=== PATIENT | male | born 1940 | race Caucasian/White ===

== ENCOUNTER 2018-01-26 09:40 | Observation (INO) | payer MEDICARE, BC ==
[2018-01-26] MEDS ORDERED: Sodium Chloride 0.9% 10 ML Syringe FLUSH PRN (09:51)
[2018-01-26 10:40] LABS: CHLORIDE,CL 106 mmol/L (98-107); SODIUM,NA 140 mmol/L (136-145)
[2018-01-26] MEDS ORDERED: Lactated Ringers 1,000 ML IV SCH ×2 (11:45→14:00)
[2018-01-26] MEDS ORDERED: Sodium Chloride 0.9% 1,000 ML IV SCH (14:15)
[2018-01-26] MEDS ORDERED: Lisinopril 10 MG Tab PO STA (14:51)
--- NOTE | 2018-01-26 15:16 | EDM.PDOC ---
ED HPI GENERAL MEDICAL PROBLEM - General Chief Complaint: General Stated Complaint: DIZZINESS Time Seen by Provider: 01/26/18 09:50 Source of Information: Reports: Patient History Limitations: Reports: No Limitations - History of Present Illness INITIAL COMMENTS - FREE TEXT/NARRATIVE: Pt. presents to ER with complaints of acute lightheadedness and near syncope. Pt. states that the symptoms started while he was blowing his nose. He states that he had been walking at the [facility] prior to this. He states that he has been experiencing these symptoms for several months. He has had a recent echocardiogram and EKG which were not acutely abnormal. Pt. states that he did not experience any chest pain, shortness of breath, or headache prior to the event. He states that he didn't experience any diaphoresis during the event. He states that he has not recently been ill. Denies any recent medication changes. Onset: Today Location: Reports: Generalized Associated Symptoms: Reports: Weakness - Related Data Allergies Allergy/AdvReac Type Severity Reaction Status Date / Time No Known Allergies Allergy Verified 01/26/18 10:11 Home Meds: Home Meds Aspirin [Halfprin] 81 mg PO BRK 10/01/16 [History] Cholecalciferol (Vitamin D3) [Vitamin D3] 1,000 unit PO DAILY 10/01/16 [History] FA/Lycopene/Lut/MV,Ca,Iron,Min [Centrum] 1 tab PO DAILY 10/01/16 [History] Flaxseed Oil 1,000 mg PO DAILY 10/01/16 [History] Lisinopril [Prinivil] 2.5 mg PO DAILY 10/01/16 [History] Metoprolol Succinate [Toprol XL] 50 mg PO DAILY 10/01/16 [History] Simvastatin [Zocor] 40 mg PO BEDTIME 10/01/16 [History] Warfarin [Coumadin] 5 mg PO DAILY 10/01/16 [History] [place]-3/DHA/Epa/Fish Oil [Fish Oil 1,000 mg Softgel] 1,000 mg PO BID 01/26/18 [ History] Past Medical History HEENT History: Reports: Cataract, Other (See Below) Other HEENT History: presbyopia. astigmatism. hypermetropia Cardiovascular History: Reports: Afib, CAD, High Cholesterol, Hypertension, Other (See Below) Other Cardiovascular History: mitral valve stenosis and aortic valve stenosis. ascending aorta dilation Respiratory History: Reports: Other (See Below) Other Respiratory History: pleural effusion,bilat Gastrointestinal History: Reports: Colon Polyp, Diverticulosis Genitourinary History: Reports: Renal Disease, Other (See Below) Other Genitourinary History: spermatocele of epididymis. CKD stage 3 GFR 30- 59. peyronie disease Musculoskeletal History: Reports: Other (See Below) Other Musculoskeletal History: tendinopathy of right biceps tendon Neurological History: Reports: Other (See Below) Other Neuro History: near syncopy Endocrine/Metabolic History: Reports: Other (See Below) Other Endocrine/Metabolic History: thyroid cyst, hyperglycemia Oncologic (Cancer) History: Reports: Other (See Below) Other Oncologic History: malignant neoplasm of skin - Past Surgical History HEENT Surgical History: Reports: Cataract Surgery Cardiovascular Surgical History: Reports: Other (See Below) Other Cardiovascular Surgeries/Procedures: aortic valve replacement with metallic valve GI Surgical History: Reports: Colonoscopy Musculoskeletal Surgical History: Reports: Other (See Below) Other Musculoskeletal Surgeries/Procedures:: hand surgery, shoulder surgery Social & Family History - Family History Family Medical History: Noncontributory - Tobacco Use Smoking Status *Q: Never Smoker Used Tobacco, but Quit: Yes Month/Year Tobacco Last Used: unknown Second Hand Smoke Exposure: No - Caffeine Use Caffeine Use: Reports: None - Alcohol Use Days Per Week of Alcohol Use: 7 Number of Drinks Per Day: 2 Total Drinks Per Week: 14 - Recreational Drug Use Recreational Drug Use: No ED ROS GENERAL - Review of Systems Review Of Systems: See Below Constitutional: Reports: No Symptoms HEENT: Reports: No Symptoms Respiratory: Reports: No Symptoms Cardiovascular: Reports: Blood Pressure Problem, Lightheadedness, Other (near syncope). Denies: Chest Pain, Dyspnea on Exertion, Palpitations Endocrine: Reports: No Symptoms GI/Abdominal: Reports: No Symptoms. Denies: Black Stool, Bloody Stool, Hematemesis, Hematochezia, Melena : Reports: No Symptoms Musculoskeletal: Reports: No Symptoms Skin: Reports: No Symptoms Neurological: Reports: Dizziness, Difficulty Walking, Gait Disturbance, Other. Denies: Confusion, Seizure Psychiatric: Reports: No Symptoms ED EXAM, GENERAL - Physical Exam Exam: See Below Exam Limited By: No Limitations General Appearance: Alert, WD/WN, No Apparent Distress Eye Exam: Bilateral Eye: EOMI, Normal Fundi, Normal Inspection, PERRL Ears: Normal External Exam, Normal Canal, Hearing Grossly Normal, Normal TMs Nose: Normal Inspection, Normal Mucosa, No Blood Throat/Mouth: Normal Lips, Normal Teeth, Normal Gums, Normal Voice, No Airway Compromise, Other (oral mucosa dry) Head: Atraumatic, Normocephalic Neck: Normal Inspection, Supple, Non-Tender, Full Range of Motion Respiratory/Chest: No Respiratory Distress, Lungs Clear, Normal Breath Sounds, No Accessory Muscle Use, Chest Non-Tender Cardiovascular: No Edema, No Gallop, No JVD, No Rub, Systolic Murmur, Irregularly Irregular Peripheral Pulses: 4+: Radial (L), Radial (R) GI/Abdominal: Normal Bowel Sounds, Soft, Non-Tender, No Organomegaly, No Distention, No Abnormal Bruit, No Mass (Male) Exam: Deferred Rectal (Males) Exam: Deferred Back Exam: Normal Inspection, Full Range of Motion, NT Extremities: Normal Inspection, Normal Range of Motion, Non-Tender, Normal Capillary Refill, No Pedal Edema Neurological: Alert, Oriented, CN II-XII Intact, Normal Cognition, Normal Gait, Normal Reflexes, No Motor/Sensory Deficits Psychiatric: Normal Affect, Normal Mood Skin Exam: Warm, Dry, Intact, Normal Color, No Rash Lymphatic: No Adenopathy EKG INTERPRETATION EKG Date: 01/26/18 Rhythm: A-Fib Course - Vital Signs Last Recorded V/S: Last Vital Signs Temp 36.2 C 01/26/18 13:41 Pulse 65 01/26/18 13:41 Resp 16 01/26/18 13:41 BP 147/70 H 01/26/18 13:41 Pulse Ox 98 01/26/18 13:41 - Orders/Labs/Meds Orders: Active Orders 24 hr Category Date Time Status Chest 2V [CR] Stat Exams 01/26/18 09:51 Taken Head wo Cont [CT] Stat Exams 01/26/18 09:52 Taken Sodium Chloride 0.9% [Saline Flush] Med 01/26/18 09:51 Active 10 ml FLUSH ASDIRECTED PRN Peripheral IV Insertion Adult [OM.PC] Routine Oth 01/26/18 09:51 Ordered Medication Orders Amlodipine Besylate (Norvasc) 5 mg PO DAILY [facility] Aspirin (Halfprin) 81 mg PO BRK [facility] Cholecalciferol (Vitamin D3) 1,000 units PO DAILY [facility] Fish Oil (Fish Oil) 1 gm PO BID [facility] Hydrochlorothiazide (Hydrochlorothiazide) 12.5 mg PO DAILY [facility] Lactated Ringer's (Ringers, Lactated) 1,000 mls @ 200 mls/hr IV ASDIRECTED [facility] Stop: 01/26/18 18:59 Last Admin: 01/26/18 14:00 Dose: 200 mls/hr Lisinopril (Prinivil) 2.5 mg PO DAILY [facility] Multivitamins/Minerals (Thera M Plus) 1 tab PO DAILY [facility] Simvastatin (Zocor) 40 mg PO BEDTIME [facility] Sodium Chloride (Saline Flush) 10 ml FLUSH ASDIRECTED PRN PRN Reason: Keep Vein Open Warfarin Sodium (Coumadin) 5 mg PO DAILY@1999 [facility] Labs: Laboratory Tests 01/26/18 01/26/18 01/26/18 Range/Units 10:02 10:02 10:02 WBC 8.1 (4.0-10.0) x10^3/uL RBC 4.46 L (4.5-6.0) x10^6/uL Hgb 14.5 (14.0-18.0) g/dL Hct 43.4 (40.0-52.0) % MCV 97.3 H (78.0-93.0) fL MCH 32.5 H (26.0-32.0) pg MCHC 33.4 (32.0-36.0) g/dL RDW Coeff of Karis 12.5 (10.0-15.0) % Plt Count 179 (130-400) x10^3/uL Neut % (Auto) 67.3 (50.0-80.0) % Lymph % (Auto) 16.1 L (25.0-50.0) % [place] % (Auto) 13.0 H (2.0-11.0) % Eos % (Auto) 3.0 (0.0-4.0) % Baso % (Auto) 0.6 (0.2-1.2) % PT 20.7 H (9.8-11.8) SEC INR 2.0 (2.0-3.5) Sodium 140 (136-145) mmol/L Potassium 4.6 (3.5-5.1) mmol/L Chloride 106 (98-107) mmol/L Carbon Dioxide 29 (21-32) mmol/L Anion Gap 9.6 BUN 22 H (7-18) mg/dL Creatinine 1.5 H (0.70-1.30) mg/dL Est Cr Clr Drug Dosing 43.83 mL/min Estimated GFR (MDRD) 45 Glucose 111 H (74-106) mg/dL Calcium 9.2 (8.5-10.1) mg/dL Corrected Calcium 9.44 (8.5-10.1) mg/dL Phosphorus 4.1 (2.6-4.7) mg/dL Magnesium 1.8 (1.8-2.4) mg/dL Total Bilirubin 0.5 (0.2-1.0) mg/dL AST 31 (15-37) U/L ALT 29 (16-63) U/L Alkaline Phosphatase 57 (46-116) U/L Troponin I < 0.017 (<=0.056) ng/mL C-Reactive Protein < 0.2 (<=0.9) mg/dL Total Protein 6.9 (6.4-8.2) g/dL Albumin 3.7 (3.4-5.0) g/dL Globulin 3.2 Albumin/Globulin Ratio 1.16 TSH, Ultra Sensitive 1.153 (0.358-3.74) uIU/mL Meds: Medications Generic Name Dose Route Start Last Admin Trade Name Freq PRN Reason Stop Dose Admin Amlodipine Besylate 5 mg 01/27/18 08:00 Norvasc PO DAILY [facility] Aspirin 81 mg 01/27/18 08:00 Halfprin PO BRK [facility] Cholecalciferol 1,000 units 01/27/18 08:00 Vitamin D3 PO DAILY [facility] Fish Oil 1 gm 01/26/18 20:00 Fish Oil PO BID [facility] Hydrochlorothiazide 12.5 mg 01/27/18 08:00 Hydrochlorothiazide PO DAILY [facility] Lactated Ringer's 1,000 mls @ 200 mls/hr 01/26/18 14:00 01/26/18 14:00 Ringers, Lactated IV 01/26/18 18:59 200 mls/hr ASDIRECTED [facility] Administration Lisinopril 2.5 mg 01/27/18 08:00 Prinivil PO DAILY [facility] Multivitamins/Minerals 1 tab 01/27/18 08:00 Thera M Plus PO DAILY [facility] Simvastatin 40 mg 01/26/18 20:00 Zocor PO BEDTIME [facility] Sodium Chloride 10 ml 01/26/18 09:51 Saline Flush FLUSH ASDIRECTED PRN Keep Vein Open Warfarin Sodium 5 mg 01/26/18 20:00 Coumadin PO DAILY@2000 [facility] Discontinued Medications Generic Name Dose Route Start Last Admin Trade Name Freq PRN Reason Stop Dose Admin Lactated Ringer's 1,000 mls @ 500 mls/hr 01/26/18 11:45 01/26/18 11:40 Ringers, Lactated IV 500 mls/hr ASDIRECTED [facility] Administration Sodium Chloride 1,000 mls @ 200 mls/hr 01/26/18 14:15 01/26/18 14:50 Normal Saline IV 01/26/18 19:14 Not Given ASDIRECTED [facility] Lisinopril 10 mg 01/26/18 14:51 01/26/18 15:06 Prinivil PO 01/26/18 14:52 Not Given NOW STA Non-Formulary Medication 1,000 mg 01/27/18 08:00 Flaxseed Oil [Flaxseed Oil] PO DAILY [facility] - Radiology Interpretation Free Text/Narrative:: CT brain negative for acute pathology 2 view chest negative for acute pathology Departure - Departure Time of Disposition: 11:50 Disposition: Refer to Observation Condition: Good Clinical Impression: Near syncope, Dehydration - Discharge Information - My Orders Last 24 Hours: My Active Orders 01/26/18 09:51 Chest 2V [CR] Stat Sodium Chloride 0.9% [Saline Flush] 10 ml FLUSH ASDIRECTED PRN Peripheral IV Insertion Adult [OM.PC] Routine 01/26/18 09:52 Head wo Cont [CT] Stat - Assessment/Plan Last 24 Hours: My Active Orders 01/26/18 09:51 Chest 2V [CR] Stat Sodium Chloride 0.9% [Saline Flush] 10 ml FLUSH ASDIRECTED PRN Peripheral IV Insertion Adult [OM.PC] Routine 01/26/18 09:52 Head wo Cont [CT] Stat
[2018-01-26] MEDS ORDERED: Cholecalciferol (Vitamin D3) 1,000 Unit Tab PO SCH (20:00)
[2018-01-26] MEDS ORDERED: Simvastatin 40 MG Tab PO SCH (20:00)
[2018-01-26] MEDS ORDERED: Warfarin 5 MG Tab PO SCH (20:00)
[2018-01-26] MEDS: Fish Oil/Omega-3 Fatty Acids 1 Gm Cap PO SCH (21:27)
[2018-01-27 06:25] VITALS: BP 153/69
[2018-01-27] MEDS ORDERED: Lisinopril 2.5 MG Tab PO SCH (08:00)
[2018-01-27] MEDS ORDERED: Aspirin 81 MG Tab.EC PO SCH (08:00)
[2018-01-27] MEDS ORDERED: Hydrochlorothiazide 12.5 MG Cap PO SCH (08:00)
[2018-01-27] MEDS ORDERED: Non-Formulary Medication 1 Each (Flaxseed Oil [Flaxseed Oil] 1,000 MG) PO SCH (08:00)
[2018-01-27] MEDS ORDERED: Multivitamins with Iron/Calcium/Folic Acid/Minerals Tab PO SCH (08:00)
[2018-01-27] MEDS ORDERED: amLODIPine 5 MG Tab PO SCH (08:00)
[2018-01-27] MEDS: Fish Oil/Omega-3 Fatty Acids 1 Gm Cap PO SCH (08:18)
--- NOTE | 2018-01-27 09:01 | PCM.DCSUM1 ---
Discharge Summary - Hospital Course HPI Initial Comments: Pt. presented to Emergency Room at [facility] yesterday afternoon with complaints of acute lightheadedness and near syncope. Pt. stated the symptoms started while he was blowing his nose. He states [facility] to the episode. He states that he has been experiencing these symptoms for several months. The syncope is not a new finding. He has had a recent echocardiogram which showed an EF of 65%. His last EKG's were controlled Afib with rates in the 60's. Pt. states that he did not experience any chest pain, shortness of breath, or headache during the event. He states that he didn't experience any diaphoresis. He states that he has not recently been ill. Denies any recent medication changes. Patient denied any headache and no head trauma. Patient was recently seen by his shop mechanic on January 19, 2018. It is noted during that cardiology visit the patient had complained of dizziness. It was felt that the dizziness is related more so to the patient's hydration status. The patient underwent a carotid ultrasound which was negative. The patient's labs have been stable. Cardiology did recommend a possible event monitor if the episodes continue. The patient does have some mild to moderate mitral valve regurgitation which was seen on echocardiogram in January 18, 2018. The patient does have chronic atrial fibrillation and has been asymptomatic. He is anticoagulated on warfarin. The patient also has a history of stage III chronic kidney disease. It is recommended that the patient avoid any NSAIDs. - Discharge Data Discharge Date: 01/27/18 Discharge Disposition: Home, Self-Care 01 Condition: Good - Discharge Diagnosis/Problem(s) (1) Near syncope SNOMED Code(s): 551691775 ICD Code: R55 - SYNCOPE AND COLLAPSE Status: Chronic Priority: Medium Current Visit: Yes (2) Dehydration SNOMED Code(s): 23508883 ICD Code: E86.0 - DEHYDRATION Status: Chronic Priority: Medium Current Visit: Yes (3) Chronic atrial fibrillation SNOMED Code(s): 488933279 ICD Code: I48.2 - CHRONIC ATRIAL FIBRILLATION Status: Chronic Priority: Medium Current Visit: No (4) Aortic valve stenosis, nonrheumatic SNOMED Code(s): 674384038 ICD Code: I35.0 - NONRHEUMATIC AORTIC (VALVE) STENOSIS Status: Chronic Priority: Low Current Visit: No (5) Essential hypertension SNOMED Code(s): 21696715 ICD Code: I10 - ESSENTIAL (PRIMARY) HYPERTENSION Status: Chronic Priority : Low Current Visit: No (6) Hyperlipidemia SNOMED Code(s): 33461053 ICD Code: E78.5 - HYPERLIPIDEMIA, UNSPECIFIED Status: Chronic Priority: Low Current Visit: No Qualifiers: Hyperlipidemia type: mixed hyperlipidemia Qualified Code(s): E78.2 - Mixed hyperlipidemia (7) Chronic kidney disease (CKD), stage III (moderate) SNOMED Code(s): 167502095 ICD Code: N18.3 - CHRONIC KIDNEY DISEASE, STAGE 3 (MODERATE) Status: Chronic Priority: Low Current Visit: No - Patient Summary/Data Operative Procedure(s) Performed: None Consults: Patient was seen by Physical Therapy in the ED yesterday for Eply maneuver. The exam was negative for BPPV. Labs Pending at D/C: None Recommended Follow-up Testing/Procedures: Possible event monitor per PCP/Cards Planned Operative Procedure(s) after DC: None Hospital Course: Overall, the patient remained hemodynamically stable. No syncopal episodes. No fevers. Patient ambulating independently. No issues with urination or BM's. Patient tolerated diet without problems. HR 50's-60's and stable (this is chronic). - Patient Instructions Diet: Heart Healthy Diet Activity: No Strenuous Activities, Rest and Relax Today Driving: Do Not Drive Showering/Bathing: May Shower Notify Provider of: Fever, Increased Pain, Nausea and/or Vomiting - Discharge Plan Home Medications: Home Meds Aspirin [Halfprin] 81 mg PO BRK 10/01/16 [History] Cholecalciferol (Vitamin D3) [Vitamin D3] 1,000 unit PO BEDTIME 10/01/16 [ History] FA/Lycopene/Lut/MV,Ca,Iron,Min [Centrum] 1 tab PO DAILY 10/01/16 [History] Flaxseed Oil 1,000 mg PO DAILY 10/01/16 [History] Lisinopril [Prinivil] 2.5 mg PO DAILY 10/01/16 [History] Metoprolol Succinate [Toprol XL] 50 mg PO DAILY 10/01/16 [History] Simvastatin [Zocor] 40 mg PO BEDTIME 10/01/16 [History] Warfarin [Coumadin] 5 mg PO BEDTIME 10/01/16 [History] [place]-3/DHA/Epa/Fish Oil [Fish Oil 1,000 mg Softgel] 1,000 mg PO BEDTIME [History] Patient Handouts: Atrial Fibrillation, Rehydration, Adult Referrals: Felipa Wyatt MD [Primary Care Provider] - - Discharge Summary/Plan Comment DC Time >30 min.: Yes Discharge Summary/Plan Comment: 78-year-old male patient with a past medical history of chronic atrial fibrillation, mitral valve regurgitation, hypertension, hyperlipidemia, chronic kidney disease was admitted to the observation unit at [facility] yesterday with a diagnosis of near syncope and dehydration. The initial concern on admission was the patient's heart rate sometimes registering in the 40s and 50s and also the patient's elevated blood pressure. Reviewing the patient's old records, the patient's heart rate has previously been bradycardic but normally is in the upper 50s to 60s. The patient was recently seen by cardiology who is working with the patient on better blood pressure control. The patient had his metoprolol discontinued yesterday with concerns of bradycardia. The patient was therefore started on amlodipine and hydrochlorothiazide. We will resume the patient's metoprolol for rate control due to atrial fibrillation and status post aortic valve repair. We will stop the hydrochlorothiazide and the amlodipine. We will also resume the lisinopril. I will keep to low dose lisinopril due to chronic kidney disease. I will have the patient follow-up with his primary care provider next week for a hospital follow -up. I will defer blood pressure control and heart rates issues to Cardiology recommendations. I would recommend that the patient have his blood pressure rechecked at that time. Looking back in the patient's old records it appears that his baseline systolic blood pressures in the 120s and diastolic blood pressures in the 60s and 70s. The patient's elevated blood pressure on this admission could merely be from stress and concern about why he is having syncopal episodes. Discharge plan was discussed with the patient in his at the time of discharge. Patient agrees with the plan of care and wishes to proceed. Since the patient did receive his lisinopril and amlodipine today, I will have the patient restart his metoprolol at the regular dose tomorrow. - General Info Date of Service: 01/27/18 Admission Dx/Problem (Free Text: Near Syncope Dehydration Functional Status: Reports: Pain Controlled, Tolerating Diet, Ambulating, Urinating Numeric/FACES Score: 0 - Review of Systems General: Denies: Fever, Weakness Pulmonary: Denies: Shortness of Breath, Cough Cardiovascular: Denies: Chest Pain, Palpitations Gastrointestinal: Denies: Abdominal Pain, Nausea, Vomiting Skin: Reports: No Symptoms Neurological: Denies: Dizziness, Headache, Syncope - Patient Data Vitals - Most Recent: Last Vital Signs Temp 36.8 C 01/27/18 06:00 Pulse 53 L 01/27/18 06:00 Resp 18 01/27/18 06:00 BP 153/69 H 01/27/18 06:00 Pulse Ox 98 01/27/18 06:00 Weight - Most Recent: 85.321 kg I&O - Last 24 hours: Intake & Output 01/26/18 01/27/18 01/27/18 22:59 06:59 14:59 Intake Total 1792 1515 360 Output Total 400 1300 Balance 1392 215 360 Lab Results - Last 24 hrs: Laboratory Results - last 24 hr 01/26/18 01/26/18 01/26/18 Range/Units 10:02 10:02 10:02 WBC 8.1 (4.0-10.0) x10^3/uL RBC 4.46 L (4.5-6.0) x10^6/uL Hgb 14.5 (14.0-18.0) g/dL Hct 43.4 (40.0-52.0) % MCV 97.3 H (78.0-93.0) fL MCH 32.5 H (26.0-32.0) pg MCHC 33.4 (32.0-36.0) g/dL RDW Coeff of Karis 12.5 (10.0-15.0) % Plt Count 179 (130-400) x10^3/uL Neut % (Auto) 67.3 (50.0-80.0) % Lymph % (Auto) 16.1 L (25.0-50.0) % [place] % (Auto) 13.0 H (2.0-11.0) % Eos % (Auto) 3.0 (0.0-4.0) % Baso % (Auto) 0.6 (0.2-1.2) % PT 20.7 H (9.8-11.8) SEC INR 2.0 (2.0-3.5) Sodium 140 (136-145) mmol/L Potassium 4.6 (3.5-5.1) mmol/L Chloride 106 (98-107) mmol/L Carbon Dioxide 29 (21-32) mmol/L Anion Gap 9.6 BUN 22 H (7-18) mg/dL Creatinine 1.5 H (0.70-1.30) mg/dL Est Cr Clr Drug Dosing 43.83 mL/min Estimated GFR (MDRD) 45 Glucose 111 H (74-106) mg/dL Calcium 9.2 (8.5-10.1) mg/dL Corrected Calcium 9.44 (8.5-10.1) mg/dL Phosphorus 4.1 (2.6-4.7) mg/dL Magnesium 1.8 (1.8-2.4) mg/dL Total Bilirubin 0.5 (0.2-1.0) mg/dL AST 31 (15-37) U/L ALT 29 (16-63) U/L Alkaline Phosphatase 57 (46-116) U/L Troponin I < 0.017 (<=0.056) ng/mL C-Reactive Protein < 0.2 (<=0.9) mg/dL Total Protein 6.9 (6.4-8.2) g/dL Albumin 3.7 (3.4-5.0) g/dL Globulin 3.2 Albumin/Globulin Ratio 1.16 TSH, Ultra Sensitive 1.153 (0.358-3.74) uIU/mL 01/26/18 01/27/18 01/27/18 Range/Units 17:29 07:11 07:11 WBC 9.0 (4.0-10.0) x10^3/uL RBC 4.34 L (4.5-6.0) x10^6/uL Hgb 14.9 (14.0-18.0) g/dL Hct 42.1 (40.0-52.0) % MCV 97.0 H (78.0-93.0) fL MCH 34.3 H (26.0-32.0) pg MCHC 35.4 (32.0-36.0) g/dL RDW Coeff of Karis 12.3 (10.0-15.0) % Plt Count 167 (130-400) x10^3/uL Neut % (Auto) 63.3 (50.0-80.0) % Lymph % (Auto) 19.6 L (25.0-50.0) % [place] % (Auto) 13.0 H (2.0-11.0) % Eos % (Auto) 3.4 (0.0-4.0) % Baso % (Auto) 0.7 (0.2-1.2) % PT (9.8-11.8) SEC INR (2.0-3.5) Sodium 140 (136-145) mmol/L Potassium 4.4 (3.5-5.1) mmol/L Chloride 106 (98-107) mmol/L Carbon Dioxide 29 (21-32) mmol/L Anion Gap 9.4 BUN 20 H (7-18) mg/dL Creatinine 1.3 (0.70-1.30) mg/dL Est Cr Clr Drug Dosing 50.57 mL/min Estimated GFR (MDRD) 53 Glucose 97 (74-106) mg/dL Calcium 8.9 (8.5-10.1) mg/dL Corrected Calcium (8.5-10.1) mg/dL Phosphorus (2.6-4.7) mg/dL Magnesium (1.8-2.4) mg/dL Total Bilirubin (0.2-1.0) mg/dL AST (15-37) U/L ALT (16-63) U/L Alkaline Phosphatase (46-116) U/L Troponin I < 0.017 (<=0.056) ng/mL C-Reactive Protein (<=0.9) mg/dL Total Protein (6.4-8.2) g/dL Albumin (3.4-5.0) g/dL Globulin Albumin/Globulin Ratio TSH, Ultra Sensitive (0.358-3.74) uIU/mL Med Orders - Current: Current Medications Amlodipine Besylate (Norvasc) 5 mg PO DAILY [facility] Last Admin: 01/27/18 08:19 Dose: 5 mg Aspirin (Halfprin) 81 mg PO BRK [facility] Last Admin: 01/27/18 08:18 Dose: 81 mg Cholecalciferol (Vitamin D3) 1,000 units PO BEDTIME [facility] Last Admin: 01/26/18 21:27 Dose: 1,000 units Fish Oil (Fish Oil) 1 gm PO BID [facility] Last Admin: 01/27/18 08:18 Dose: 1 gm Lisinopril (Prinivil) 2.5 mg PO DAILY [facility] Last Admin: 01/27/18 08:18 Dose: 2.5 mg Multivitamins/Minerals (Thera M Plus) 1 tab PO DAILY [facility] Last Admin: 01/27/18 08:18 Dose: 1 tab Simvastatin (Zocor) 40 mg PO BEDTIME [facility] Last Admin: 01/26/18 21:27 Dose: 40 mg Sodium Chloride (Saline Flush) 10 ml FLUSH ASDIRECTED PRN PRN Reason: Keep Vein Open Warfarin Sodium (Coumadin) 5 mg PO DAILY@1999 [facility] Last Admin: 01/26/18 21:26 Dose: 5 mg Discontinued Medications Hydrochlorothiazide (Hydrochlorothiazide) 12.5 mg PO DAILY [facility] Lactated Ringer's (Ringers, Lactated) 1,000 mls @ 500 mls/hr IV ASDIRECTED [facility] Last Admin: 01/26/18 11:40 Dose: 500 mls/hr Sodium Chloride (Normal Saline) 1,000 mls @ 200 mls/hr IV ASDIRECTED [facility] Stop: 01/26/18 19:14 Last Admin: 01/26/18 14:50 Dose: Not Given Lactated Ringer's (Ringers, Lactated) 1,000 mls @ 200 mls/hr IV ASDIRECTED [facility] Stop: 01/26/18 18:59 Last Admin: 01/26/18 14:00 Dose: 200 mls/hr Lisinopril (Prinivil) 10 mg PO NOW [facility] Stop: 01/26/18 14:52 Last Admin: 01/26/18 15:06 Dose: Not Given Non-Formulary Medication (Flaxseed Oil [Flaxseed Oil]) 1,000 mg PO DAILY [facility] - Exam General: Reports: Alert, Oriented, Cooperative, No Acute Distress Neck: Reports: Supple, No JVD Lungs: Reports: Clear to Auscultation, Normal Respiratory Effort Cardiovascular: Reports: Regular Rate (67 at time of discharge), Irregular Rhythm (chronic Atrial Fib) GI/Abdominal Exam: Normal Bowel Sounds, Soft, Non-Tender Skin: Reports: Warm, Dry, Intact Neurological: Reports: No New Focal Deficit *Q Meaningful Use (DIS) - VTE *Q VTE Mechanical Contraindications *Q: At Risk for Falls
== END 2018-01-27 10:00 | disposition home or self-care (01) ==
LOC: VM.ED 09:40 → VM.MS 11:40
PROVIDERS: ADMIT Physician Assistant; ATTEND Physician Assistant
DX: R55 Syncope and collapse (principal); E86.0 Dehydration; I48.2 Chronic atrial fibrillation; I35.0 Nonrheumatic aortic (valve) stenosis; E78.2 Mixed hyperlipidemia; I12.9 Hypertensive chronic kidney disease with stage 1 through stage 4 chronic kidney disease, or unspecified chronic kidney disease; N18.3 Chronic kidney disease, stage 3 (moderate); I25.10 Atherosclerotic heart disease of native coronary artery without angina pectoris; Z79.82 Long term (current) use of aspirin; Z79.01 Long term (current) use of anticoagulants; Z79.899 Other long term (current) drug therapy
CPT/HCPCS: 36415; 70450; 71046; 80048; 80053; 83735; 84100; 84443; 84484; 85025; 85610; 86140; 93005; 99285; A9270; J7120; 93010; 96360; 96361; 99284-GF; G0378

== ENCOUNTER 2018-02-21 10:55 | Emergency (ER) | payer MEDICARE, BC ==
[2018-02-21] MEDS ORDERED: Sodium Chloride 0.9% 10 ML Syringe FLUSH PRN (11:09)
--- NOTE | 2018-02-21 11:09 | EDM.PDOC ---
ED HPI GENERAL MEDICAL PROBLEM - General Chief Complaint: Neurological Problem Stated Complaint: Dizziness; Blurred Vision Time Seen by Provider: 02/21/18 11:06 Source of Information: Reports: Patient, Family, RN, RN Notes Reviewed History Limitations: Reports: No Limitations - History of Present Illness INITIAL COMMENTS - FREE TEXT/NARRATIVE: Patient presents to the ED at [facility] complaining of dizziness and blurry , double vision. Patient states this was a sudden onset when he was walking into his home about 1/2 hours prior to presentation. His dizziness actually started a couple months back. He has been seen by his PCP for this. He is currently wearing a Holter monitor. He denies any syncope. No head injury or trauma. He states the blurry double vision started the same time as the dizziness. He did not fall. Patient denies any other neurological problems. No chest pain or SOB. Patient denies any abdominal pain. No recent URI. Patient denies any N/V/D. Onset: Today, Sudden Onset Date: 02/21/18 Onset Time: 10:30 - Related Data Allergies Allergy/AdvReac Type Severity Reaction Status Date / Time No Known Allergies Allergy Verified 02/21/18 11:30 Home Meds: Home Meds Aspirin [Halfprin] 81 mg PO BRK 10/01/16 [History] Cholecalciferol (Vitamin D3) [Vitamin D3] 1,000 unit PO BEDTIME 10/01/16 [ History] FA/Lycopene/Lut/MV,Ca,Iron,Min [Centrum] 1 tab PO DAILY 10/01/16 [History] Flaxseed Oil 1,000 mg PO DAILY 10/01/16 [History] Lisinopril [Prinivil] 2.5 mg PO DAILY 10/01/16 [History] Metoprolol Succinate [Toprol XL] 50 mg PO DAILY 10/01/16 [History] Simvastatin [Zocor] 40 mg PO BEDTIME 10/01/16 [History] Warfarin [Coumadin] 5 mg PO DAILY 10/01/16 [History] [place]-3/DHA/Epa/Fish Oil [Fish Oil 1,000 mg Softgel] 1,000 mg PO BID 01/26/18 [ History] Past Medical History HEENT History: Reports: Cataract, Other (See Below) Other HEENT History: presbyopia. astigmatism. hypermetropia Cardiovascular History: Reports: Afib, CAD, High Cholesterol, Hypertension, Other (See Below) Other Cardiovascular History: mitral valve stenosis and aortic valve stenosis. ascending aorta dilation Respiratory History: Reports: Other (See Below) Other Respiratory History: pleural effusion,bilat Gastrointestinal History: Reports: Colon Polyp, Diverticulosis Genitourinary History: Reports: Renal Disease, Other (See Below) Other Genitourinary History: spermatocele of epididymis. CKD stage 3 GFR 30- 59. peyronie disease Musculoskeletal History: Reports: Other (See Below) Other Musculoskeletal History: tendinopathy of right biceps tendon Neurological History: Reports: Other (See Below) Other Neuro History: near syncopy Endocrine/Metabolic History: Reports: Other (See Below) Other Endocrine/Metabolic History: thyroid cyst, hyperglycemia Oncologic (Cancer) History: Reports: Other (See Below) Other Oncologic History: malignant neoplasm of skin - Past Surgical History HEENT Surgical History: Reports: Cataract Surgery Cardiovascular Surgical History: Reports: Other (See Below) Other Cardiovascular Surgeries/Procedures: aortic valve replacement with metallic valve GI Surgical History: Reports: Colonoscopy Musculoskeletal Surgical History: Reports: Other (See Below) Other Musculoskeletal Surgeries/Procedures:: hand surgery, shoulder surgery Social & Family History - Family History Family Medical History: Noncontributory - Tobacco Use Smoking Status *Q: Never Smoker Used Tobacco, but Quit: Yes Month/Year Tobacco Last Used: unknown Second Hand Smoke Exposure: No - Caffeine Use Caffeine Use: Reports: None - Alcohol Use Days Per Week of Alcohol Use: 7 Number of Drinks Per Day: 2 Total Drinks Per Week: 14 - Recreational Drug Use Recreational Drug Use: No ED ROS GENERAL - Review of Systems Review Of Systems: See Below Constitutional: Denies: Fever, Chills, Weakness HEENT: Reports: Glasses, Vision Change (blurry double vision) Respiratory: Denies: Shortness of Breath, Cough Cardiovascular: Denies: Chest Pain, Palpitations GI/Abdominal: Denies: Abdominal Pain, Nausea, Vomiting Skin: Reports: No Symptoms Neurological: Reports: Dizziness. Denies: Headache, Numbness, Paresthesia, Tingling, Trouble Speaking ED EXAM, NEURO - Physical Exam Exam: See Below Exam Limited By: No Limitations General Appearance: Alert, No Apparent Distress Eye Exam: Bilateral Eye: EOMI, Normal Inspection, PERRL (sluggish) Head Exam: Atraumatic, Normocephalic Neck: Normal Inspection, Supple, Non-Tender Respiratory/Chest: No Respiratory Distress, Lungs Clear, Normal Breath Sounds Cardiovascular: Bradycardia, Irregularly Irregular GI/Abdominal: Normal Bowel Sounds, Soft, Non-Tender Neurological: Alert, No Motor/Sensory Deficits, Oriented x 3 Skin Exam: Warm, Dry, Intact, Normal Color EKG INTERPRETATION EKG Date: 02/21/18 Time: 11:07 Rhythm: A-Fib Rate (Beats/Min): 55 [place]: Normal P-Wave: Absent QRS: Normal ST-T: Normal QT: Normal OR/PQ Interval: Absent EKG Interpretation Comments: 1. Atrial Fibrillation with slow ventricular response 2. Moderate IVCD Course - Vital Signs Last Recorded V/S: Last Vital Signs Temp 36.1 C 02/21/18 10:55 Pulse 65 02/21/18 10:55 Resp 18 02/21/18 10:55 BP 187/92 H 02/21/18 10:55 Pulse Ox 94 L 02/21/18 10:55 - Orders/Labs/Meds Orders: Active Orders 24 hr Category Date Time Status Accu Check [Blood Glucose Check, Bedside] [RC] STAT Care 02/21/18 11:10 Active EKG 12 Lead [EKG Documentation Completion] [RC] STAT Care 02/21/18 11:10 Active Orthostatic Vital Signs [RC] ASDIRECTED Care 02/21/18 11:11 Active Head wo Cont [CT] Stat Exams 02/21/18 11:09 Taken Lactated Ringers [Ringers, Lactated] 1,000 ml Med 02/21/18 11:21 Active IV ONETIME Sodium Chloride 0.9% [Saline Flush] Med 02/21/18 11:09 Active 10 ml FLUSH ASDIRECTED PRN Peripheral IV Insertion Adult [OM.PC] Routine Oth 02/21/18 11:09 Ordered Medication Orders Lactated Ringer's (Ringers, Lactated) 1,000 mls @ 999 mls/hr IV ONETIME ONE Stop: 02/21/18 12:21 Last Admin: 02/21/18 11:25 Dose: 999 mls/hr Sodium Chloride (Saline Flush) 10 ml FLUSH ASDIRECTED PRN PRN Reason: Keep Vein Open Labs: Laboratory Tests 02/21/18 02/21/18 02/21/18 Range/Units 11:01 11:02 11:02 WBC 9.5 (4.0-10.0) x10^3/uL RBC 4.55 (4.5-6.0) x10^6/uL Hgb 14.6 (14.0-18.0) g/dL Hct 44.0 (40.0-52.0) % MCV 96.7 H (78.0-93.0) fL MCH 32.1 H (26.0-32.0) pg MCHC 33.2 (32.0-36.0) g/dL RDW Coeff of Karis 12.6 (10.0-15.0) % Plt Count 200 (130-400) x10^3/uL Neut % (Auto) 70.0 (50.0-80.0) % Lymph % (Auto) 15.2 L (25.0-50.0) % [place] % (Auto) 12.0 H (2.0-11.0) % Eos % (Auto) 2.2 (0.0-4.0) % Baso % (Auto) 0.6 (0.2-1.2) % PT 20.3 H (9.6-11.4) SEC INR 1.9 L (2.0-3.5) D-Dimer, Quantitative 0.38 (<=0.58) mg/LFEU Sodium (136-145) mmol/L Potassium (3.5-5.1) mmol/L Chloride (98-107) mmol/L Carbon Dioxide (21-32) mmol/L Anion Gap (10-20) mmol/L BUN (7-18) mg/dL Creatinine (0.70-1.30) mg/dL Est Cr Clr Drug Dosing Estimated GFR (MDRD) Glucose (74-106) mg/dL POC Glucose 89 (74-106) mg/dL Calcium (8.5-10.1) mg/dL Corrected Calcium (8.5-10.1) mg/dL Total Bilirubin (0.2-1.0) mg/dL AST (15-37) U/L ALT (16-63) U/L Alkaline Phosphatase (46-116) U/L Creatine Kinase (39-308) U/L POC Troponin I (0.00-0.08) ng/mL Total Protein (6.4-8.2) g/dL Albumin (3.4-5.0) g/dL Globulin Albumin/Globulin Ratio 02/21/18 02/21/18 Range/Units 11:02 11:05 WBC (4.0-10.0) x10^3/uL RBC (4.5-6.0) x10^6/uL Hgb (14.0-18.0) g/dL Hct (40.0-52.0) % MCV (78.0-93.0) fL MCH (26.0-32.0) pg MCHC (32.0-36.0) g/dL RDW Coeff of Karis (10.0-15.0) % Plt Count (130-400) x10^3/uL Neut % (Auto) (50.0-80.0) % Lymph % (Auto) (25.0-50.0) % [place] % (Auto) (2.0-11.0) % Eos % (Auto) (0.0-4.0) % Baso % (Auto) (0.2-1.2) % PT (9.6-11.4) SEC INR (2.0-3.5) D-Dimer, Quantitative (<=0.58) mg/LFEU Sodium 140 (136-145) mmol/L Potassium 4.5 (3.5-5.1) mmol/L Chloride 105 (98-107) mmol/L Carbon Dioxide 27 (21-32) mmol/L Anion Gap 12.5 (10-20) mmol/L BUN 20 H (7-18) mg/dL Creatinine 1.5 H (0.70-1.30) mg/dL Est Cr Clr Drug Dosing TNP Estimated GFR (MDRD) 45 Glucose 89 (74-106) mg/dL POC Glucose (74-106) mg/dL Calcium 9.4 (8.5-10.1) mg/dL Corrected Calcium 9.32 (8.5-10.1) mg/dL Total Bilirubin 0.7 (0.2-1.0) mg/dL AST 35 (15-37) U/L ALT 30 (16-63) U/L Alkaline Phosphatase 58 (46-116) U/L Creatine Kinase 113 (39-308) U/L POC Troponin I 0.01 (0.00-0.08) ng/mL Total Protein 7.3 (6.4-8.2) g/dL Albumin 4.1 (3.4-5.0) g/dL Globulin 3.2 Albumin/Globulin Ratio 1.28 Meds: Medications Generic Name Dose Route Start Last Admin Trade Name Beauq PRN Reason Stop Dose Admin Lactated Ringer's 1,000 mls @ 999 mls/hr 02/21/18 11:21 02/21/18 11:25 Ringers, Lactated IV 02/21/18 12:21 999 mls/hr ONETIME ONE Administration Sodium Chloride 10 ml 02/21/18 11:09 Saline Flush FLUSH ASDIRECTED PRN Keep Vein Open - Radiology Interpretation Free Text/Narrative:: CT Head: No plain CT evidence of acute intracranial process See scanned report in EMR CT Results Date: 02/21/18 CT Results Time: 11:45 Departure - Departure Time of Disposition: 11:57 Disposition: Home, Self-Care 01 Condition: Good Clinical Impression: Dizziness - Discharge Information Instructions: Dizziness, Dehydration, Elderly, [id number] Referrals: Felipa Wyatt MD [Primary Care Provider] - Forms: ED Department Discharge Additional Instructions: 1. Stay very well hydrated and rest, especially during the warmer weather 2. Continue to wear heart monitor 3. If symptoms return and remain persistent, return to the Emergency Room 4. See Dr. Wyatt as symptoms warrant 5. Call with any questions or concerns - Problem List Review Problem List Initiated/Reviewed/Updated: Yes - My Orders Last 24 Hours: My Active Orders 02/21/18 11:09 Head wo Cont [CT] Stat Sodium Chloride 0.9% [Saline Flush] 10 ml FLUSH ASDIRECTED PRN Peripheral IV Insertion Adult [OM.PC] Routine 02/21/18 11:10 Accu Check [Blood Glucose Check, Bedside] [RC] STAT EKG 12 Lead [EKG Documentation Completion] [RC] STAT 02/21/18 11:11 Orthostatic Vital Signs [RC] ASDIRECTED 02/21/18 11:21 Lactated Ringers [Ringers, Lactated] 1,000 ml IV ONETIME - Assessment/Plan Last 24 Hours: My Active Orders 02/21/18 11:09 Head wo Cont [CT] Stat Sodium Chloride 0.9% [Saline Flush] 10 ml FLUSH ASDIRECTED PRN Peripheral IV Insertion Adult [OM.PC] Routine 02/21/18 11:10 Accu Check [Blood Glucose Check, Bedside] [] STAT EKG 12 Lead [EKG Documentation Completion] [] STAT 02/21/18 11:11 Orthostatic Vital Signs [RC] ASDIRECTED 02/21/18 11:21 Lactated Ringers [Ringers, Lactated] 1,000 ml IV ONETIME Assessment:: Dizziness secondary to dehydration and chronic bradycardia Blurry vision Plan: Labs and CT scan reviewed with patient. No emergency found. No overt reason for today's symptoms, however, they are not really changed from previous episodes. Will give 1L of fluid and discharge home. Discussed with patient is symptom return and remain sustained, he should return to ED.
[2018-02-21 11:10] VITALS: BP 187/92
[2018-02-21] MEDS ORDERED: Lactated Ringers 1,000 ML IV ONE (11:21)
[2018-02-21 11:35] LABS: CHLORIDE,CL 105 mmol/L (98-107); SODIUM,NA 140 mmol/L (136-145)
== END 2018-02-21 12:35 | disposition home or self-care (01) ==
LOC: VM.ED 10:55
DX: E86.0 Dehydration (principal); R00.1 Bradycardia, unspecified; H53.8 Other visual disturbances; I10 Essential (primary) hypertension; I48.91 Unspecified atrial fibrillation; E78.00 Pure hypercholesterolemia, unspecified; Z79.01 Long term (current) use of anticoagulants; Z79.899 Other long term (current) drug therapy; Z87.891 Personal history of nicotine dependence
CPT/HCPCS: 70450; 80053; 82550; 82962; 84484; 85025; 85379; 85610; 93010; 96360; 99284-GF; 99285; J7120

== ENCOUNTER 2021-03-28 06:56 | Day surgery (SDC) | payer MEDICARE, BC ==
[2021-03-28] MEDS ORDERED: Lactated Ringers 1,000 ML IV SCH (07:00)
[2021-03-28] MEDS ORDERED: Propofol 200 MG/20 ML SDV ONE (07:59)
[2021-03-28] MEDS ORDERED: fentaNYL 100 MCG/2 ML SDV ONE (07:59)
[2021-03-28 08:57] VITALS: BP 107/54; PULSE 56
== END 2021-03-28 09:55 | disposition home or self-care (01) ==
LOC: VM.SDS 06:56
PROVIDERS: ATTEND Family Medicine
DX: K57.31 Diverticulosis of large intestine without perforation or abscess with bleeding (principal); K64.9 Unspecified hemorrhoids; I48.91 Unspecified atrial fibrillation; Z79.01 Long term (current) use of anticoagulants; Z79.82 Long term (current) use of aspirin; F17.210 Nicotine dependence, cigarettes, uncomplicated
CPT/HCPCS: 00811; 45378; 85610; J2704; J3010; J7120

== ENCOUNTER 2022-10-26 13:08 | Emergency (ER) | payer OTHER, MEDICARE, BC ==
[2022-10-26 14:47] LABS: ANION GAP 17.4 mmol/L (5-15)
[2022-10-26 14:54] VITALS: BP 196/89; PULSE 62
== END 2022-10-26 15:00 ==
LOC: VM.ED 13:08
DX: S06.310A Contusion and laceration of right cerebrum without loss of consciousness, initial encounter (principal); I48.91 Unspecified atrial fibrillation; I25.10 Atherosclerotic heart disease of native coronary artery without angina pectoris; E78.00 Pure hypercholesterolemia, unspecified; I12.9 Hypertensive chronic kidney disease with stage 1 through stage 4 chronic kidney disease, or unspecified chronic kidney disease; N18.30 Chronic kidney disease, stage 3 unspecified; Z79.82 Long term (current) use of aspirin; Z79.899 Other long term (current) drug therapy; W01.198A Fall on same level from slipping, tripping and stumbling with subsequent striking against other object, initial encounter
CPT/HCPCS: 36415; 70450; 72125; 80053; 85025; 85610; 93005; 99285